=== PATIENT | female | born 1995 | race Hispanic/Latino ===

== ENCOUNTER 2018-05-22 12:07 | Observation (INO) | payer OTHER ==
[2018-05-22] MEDS ORDERED: Promethazine HCl 25 MG/ML VIAL IM PRN (14:27)
[2018-05-22] MEDS ORDERED: Ondansetron PF 4 MG/2 ML Vial IVP PRN (14:27)
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
[2018-05-22 15:03] LABS: Mean Corpuscular HGB CONC 34.5 g/dL (32.0-36.0); Mean Corpuscular Hemoglobin 32.5 pg (27.0-31.0); Mean Corpuscular Volume 94.4 fL (78.0-98.0); Mean Platelet Volume 7.2 fL (7.4-10.4); Platelet Count 236 thou/uL (130-400); RBC Distribution Width 11.2 % (11.5-14.5); White Blood Cell (WBC) Count 13.5 thou/uL (4.8-10.8)
[2018-05-22] MEDS: Dextrose 5%-Lactated Ringers 1,000 ML IV SCH ×3 (15:22→23:30)
[2018-05-22 15:23] LABS: ALT (SGPT) 30 U/L (8-55); AST (SGOT) 23 U/L (5-34); Albumin 3.9 g/dL (3.5-5.0); Alkaline Phosphatase 118 U/L (40-150); Anion Gap 16 mmol/L (10-20); BUN (Urea Nitrogen) 8 mg/dL (7.0-18.7); Bilirubin, Total 0.4 mg/dL (0.2-1.2); Calc. Creatinine Clearance 195 mL/min (70-130); Calcium 9.7 mg/dL (7.8-10.44); Carbon Dioxide 17 mmol/L (22-29); Chloride 107 mmol/L (98-107); Estimated GFR-MDRD Greater than 90; Globulin 3.5 g/dL (2.4-3.5); Glucose 72 mg/dL (70-105); Potassium 3.7 mmol/L (3.5-5.1); Protein, Total 7.4 g/dL (6.0-8.3); Sodium 136 mmol/L (136-145)
[2018-05-22] MEDS ORDERED: Betamet Acet/Betamet Na Ph 30 MG/5 ML VIAL ONE (17:13)
--- NOTE | 2018-05-22 17:37 | PDOC.EVN ---
Event Note - Event Note Event Note: UCs noted q 4-6 mins, not significant to patient at present. SVE closed, long, PP high. Labs: WBC= 13, H/H= 13/37, plts= 236. Chemistries are normal. B positive with negative ABS. Plan: Start steroids for FLM and observe. KB ordered.
[2018-05-22] MEDS: Betamet Acet/Betamet Na Ph 30 MG/5 ML VIAL IM SCH (18:37)
[2018-05-22 19:04] VITALS: BMI 33.8
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
[2018-05-23] MEDS: Dextrose 5%-Lactated Ringers 1,000 ML IV SCH ×2 (01:00→07:32)
[2018-05-23] MEDS: Acetaminophen 325 MG TAB PO PRN ×2 (01:15→07:36)
--- NOTE | 2018-05-23 04:18 | PDOC.EVN ---
Event Note - Event Note Event Note: Sleeping. FHTs remain stable. Fluid bolus given earlier this AM for UCs, few UCs noted now. Plan; Cont. in house OBS to complete 24 hours and give second dose of steroids later this AM.
[2018-05-23 08:10] VITALS: BP 113/64; TEMP 97.5
[2018-05-23] MEDS: Betamet Acet/Betamet Na Ph 30 MG/5 ML VIAL IM SCH (12:39)
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
== END 2018-05-23 12:50 | disposition home health service (06) ==
LOC: ERS 12:07 → L&D/OP 13:40 → L&D 14:48 → INTOOBSV 14:48
PROVIDERS: ADMIT Obstetrics & Gynecology; ATTEND Obstetrics & Gynecology
DX: O99.89 Other specified diseases and conditions complicating pregnancy, childbirth and the puerperium (principal); R10.30 Lower abdominal pain, unspecified; Z3A.34 34 weeks gestation of pregnancy; Z79.899 Other long term (current) drug therapy; V49.50XA Passenger injured in collision with unspecified motor vehicles in traffic accident, initial encounter
CPT/HCPCS: 36415; 76815; 80053; 85027; 85460; 86850; 86900; 86901; 96360; 96361; 96372; 99285; G0378; J0702

== ENCOUNTER 2018-06-25 02:57 | Inpatient (IN) | payer BC, OTHER ==
[2018-06-25 03:50] VITALS: BMI 34.4
[2018-06-25] MEDS ORDERED: Morphine 10 MG/ML VIAL IM SCH (05:30)
[2018-06-25] MEDS ORDERED: Promethazine HCl 25 MG/ML VIAL IM PRN ×2 (08:02→16:43)
[2018-06-25] MEDS ORDERED: Ibuprofen 800 MG TAB PO PRN (08:02)
[2018-06-25] MEDS ORDERED: Methylergonovine 0.2 MG/ML VIAL IM PRN ×2 (08:02→16:43)
[2018-06-25] MEDS ORDERED: NS / Oxytocin 40 units/1000ml 1,000 ML IV PRN (08:02)
[2018-06-25] MEDS ORDERED: Ondansetron PF 4 MG/2 ML Vial IVP PRN ×2 (08:02→16:43)
[2018-06-25] MEDS ORDERED: Diphenoxylate HCl/Atropine Tablet PO PRN (08:02)
[2018-06-25] MEDS ORDERED: HYDROcodone/Acetaminophen 5/325 mg Tablet PO PRN ×3 (08:02→16:43)
[2018-06-25] MEDS ORDERED: Lidocaine 1% (PF) 30 ML VIAL SC PRN (08:02)
[2018-06-25] MEDS ORDERED: Acetaminophen 500 MG TAB PO PRN (08:02)
[2018-06-25] MEDS ORDERED: Misoprostol 200 MCG TAB PR PRN (08:02)
[2018-06-25] MEDS ORDERED: Carboprost 250 MCG/ML AMP IM PRN (08:02)
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
[2018-06-25] MEDS ORDERED: NS w/ Oxytocin 10 units 500 ML IV SCH (08:15)
[2018-06-25] MEDS: Lactated Ringer's 1,000 ML IV SCH ×2 (09:00→13:53)
[2018-06-25 09:12] LABS: Hemoglobin 12.6 g/dL (12.0-16.0); Mean Corpuscular HGB CONC 33.8 g/dL (32.0-36.0); Mean Corpuscular Hemoglobin 31.9 pg (27.0-31.0); Mean Corpuscular Volume 94.3 fL (78.0-98.0); Mean Platelet Volume 7.8 fL (7.4-10.4); Platelet Count 212 thou/uL (130-400); RBC Distribution Width 12.2 % (11.5-14.5); Red Blood Cell (RBC) Count 3.97 mill/uL (4.20-5.40); White Blood Cell (WBC) Count 19.9 thou/uL (4.8-10.8)
[2018-06-25 09:58] LABS: Syphilis Antibody Nonreactive (Nonreactive); Syphilis Antibody Index 0.03 S/CO (<1.00 Non-Reactive)
[2018-06-25 09:59] LABS: HBSAg Index 0.23 S/CO (0-0.99); HIV (1/2) Antibody/Antigen Non-Reactive (NonReactive); HIV 1/2 INDEX 0.09 S/CO (<1.00); Hep B Surf Ag Non-Reactive S/CO (NonReactive)
[2018-06-25] MEDS: Butorphanol Tartrate 1 MG/ML VIAL SLOW IVP PRN ×2 (12:49→13:51)
--- NOTE | 2018-06-25 13:10 | PDOC.LDPN ---
Labor & Delivery Progress Note - Subjective Subjective: painful contractions, loss of fluid (SROM) - Objective Vital signs reviewed and normal: yes General: NAD Uterine fundus: non tender Dilation: 5 Effacement: 90% Station: -1 FHT: category 1 (120s, mod levar, +accels, no decels ) [place] contractions every: q2-3 min AROM: clear fluid (AROM redundant membranes) - Assessment (1) 39 weeks gestation of Code(s): Z3A.39 - 39 WEEKS GESTATION OF Current Visit: Yes Status : Acute (2) Active labor at term Code(s): QLT7694 - Current Visit: Yes Status: Acute Plan: continue plan of care, pitocin for augmentation
[2018-06-25] MEDS ORDERED: Fentanyl 4 mcg/Bup 0.1% Cadd 0 ML ONE (14:14)
[2018-06-25] MEDS ORDERED: Fentanyl 4 mcg/Bup 0.1% Cadd 100 ML ONE (14:31)
[2018-06-25] MEDS ORDERED: Misoprostol 200 MCG TAB VAG PRN (16:43)
[2018-06-25] MEDS ORDERED: diphenhydrAMINE 25 MG CAP PO PRN (16:43)
[2018-06-25] MEDS ORDERED: Measles/Mumps/Rubella 10 MCG/0.5 ML VIAL SC ONE (16:43)
[2018-06-25] MEDS ORDERED: Lanolin Ointment 7 GM TUBE TOP PRN (16:43)
[2018-06-25] MEDS ORDERED: Benzocaine/Menthol 20-0.5% 60 ML CAN TOP PRN (16:43)
[2018-06-25] MEDS ORDERED: Milk Of Magnesia 30 ML UDCUP PO PRN (16:43)
[2018-06-25] MEDS ORDERED: Varicella virus, LIVE 0.5 ML VIAL SC ONE (16:43)
[2018-06-25] MEDS ORDERED: Adacel (T-DAP) 0.5 ML VIAL IM ONE (16:43)
[2018-06-25] MEDS ORDERED: Bisacodyl 10 MG SUPP PR PRN (16:43)
[2018-06-25] MEDS ORDERED: Preparation H Ointment 28 GM TUBE PR PRN (16:43)
[2018-06-25] MEDS ORDERED: NS / Oxytocin 40 units/1000ml 1,000 ML IV SCH ×2 (16:45→18:15)
--- NOTE | 2018-06-25 16:49 | PDOC.OPDEL ---
OB Operative/Delivery Note Delivery Dr/Surgeon: Lissa Preston MD Pre-Delivery Diagnosis: active labor Procedure/Post Delivery Dx: spontaneous vaginal delivery Weeks gestation: 39 Anesthesia: none - Findings A Sex: male ("George") Weight: 7 lb - 1 min: 8 - 5 min: 9 - Additional Findings/Plan Placenta delivered: spontaneous Repaired Obstetrical Laceration: 2nd degree Estimated blood loss: QBL 167ml Compilations/Other Findings: delivered without difficulty. Mom and baby doing well. Post delivery plan: routine recovery
[2018-06-25] MEDS: Ibuprofen 800 MG TAB PO SCH (21:20)
[2018-06-25] MEDS: Docusate Calcium (SURFAK) 240 MG CAP PO SCH (21:21)
[2018-06-25] MEDS: Ferrous Sulfate 325 MG TAB PO SCH (23:20)
[2018-06-26] MEDS: Ibuprofen 800 MG TAB PO SCH ×3 (06:25→21:16)
[2018-06-26] MEDS: Docusate Calcium (SURFAK) 240 MG CAP PO SCH ×2 (08:44→21:16)
[2018-06-26] MEDS: Ferrous Sulfate 325 MG TAB PO SCH ×2 (08:45→17:32)
[2018-06-26] MEDS: Prenatal Vitamin 1 TAB PO SCH (08:45)
--- NOTE | 2018-06-26 12:40 | PDOC.PP ---
Post Progress Note Post Day #: 1 Subjective: No concerns. Doing well. breast feeding. Minimal lochia and pain. PO intake tolerated: yes Flatus: yes Ambulation: yes Vital Signs (12 hours) Temp Pulse Resp BP Pulse Ox 06/26/18 11:49 97.8 F 86 20 114/74 06/26/18 08:21 98.1 F 89 20 123/79 98 06/26/18 08:00 98 06/26/18 04:34 97.6 F 86 16 106/62 Weight Weight 188 lb - Physical Examination General: NAD Cardiovascular: RRR Respiratory: non-labored breathing Abdominal: no distention, appropriately TTP Fundus firm & at: below umbilicus Extremities: negative homans (B) Neurological: no gross focal deficits Psychiatric: A&Ox3, normal affect Result Diagrams: 06/25/18 08:40 Additional Labs: Post Labs Blood Type O POSITIVE 06/25/18 08:40 Hep Bs Antigen Non-Reactive S/CO (NonReactive) 06/25/18 08:40 (1) 39 weeks gestation of Code(s): Z3A.39 - 39 WEEKS GESTATION OF Status: Resolved (2) Active labor at term Code(s): UKZ5335 - Status: Resolved (3) Vaginal delivery Code(s): O80 - ENCOUNTER FOR FULL-TERM UNCOMPLICATED DELIVERY Status: Acute - Assessment/Plan PPD1 VSSAF Continue PP care Plan for d/c home tomorrow
[2018-06-27] MEDS: Ibuprofen 800 MG TAB PO SCH ×2 (06:49→08:53)
[2018-06-27] MEDS: Ferrous Sulfate 325 MG TAB PO SCH (07:28)
--- NOTE | 2018-06-27 07:30 | PDOC.PP ---
Post Progress Note Post Day #: 2 Subjective: Patient denies any complaints. She is breast feeding without difficulty. She reports ambulating, tolerating PO, and voiding without difficulty. She states that her abdominal pain is minimal. She reports minimal vaginal bleeding. She denies any N/V. She endorses flatus and BM. PO intake tolerated: yes Flatus: yes Ambulation: yes Vital Signs (12 hours) Temp Pulse Resp BP Pulse Ox 06/26/18 20:00 98.9 F 85 20 133/80 97 Weight Weight 85.275 kg - Physical Examination General: NAD Cardiovascular: no m/r/g, RRR Respiratory: clear to auscultation bilaterally, non-labored breathing Abdominal: + bowel sounds, lochia (minimal), no distention, appropriately TTP Fundus firm & at: 2 cm below umbilicus Neurological: no gross focal deficits Psychiatric: A&Ox3, normal affect Result Diagrams: 06/25/18 08:40 Additional Labs: Post Labs Blood Type O POSITIVE 06/25/18 08:40 Hep Bs Antigen Non-Reactive S/CO (NonReactive) 06/25/18 08:40 (1) Vaginal delivery Code(s): O80 - ENCOUNTER FOR FULL-TERM UNCOMPLICATED DELIVERY Status: Acute Comment: 23 y/o ->1 delivered via -Routine post- care -Pain control with ibuprofen and norco, will d/c norco -Encourage breast feeding -Encourage ambulation -d/c home today - Assessment/Plan d/c home today with
[2018-06-27] MEDS: Prenatal Vitamin 1 TAB PO SCH (08:53)
[2018-06-27] MEDS: Docusate Calcium (SURFAK) 240 MG CAP PO SCH (08:53)
[2018-06-27 09:14] VITALS: BP 114/69; TEMP 98
== END 2018-06-27 13:15 | disposition home or self-care (01) | DRG 807 ==
LOC: L&D/OP 02:57 → L&D 10:59 → 3SW 18:54
PROVIDERS: ADMIT Obstetrics & Gynecology; ATTEND Obstetrics & Gynecology
PROC: 10E0XZZ Delivery of Products of Conception, External Approach (ICD-10-PCS; principal; 2018-06-25)
PROC: 0KQM0ZZ Repair Perineum Muscle, Open Approach (ICD-10-PCS; 2018-06-25)
DX: O76 Abnormality in fetal heart rate and rhythm complicating labor and delivery (principal); Z37.0 Single live birth; Z3A.39 39 weeks gestation of pregnancy; O70.1 Second degree perineal laceration during delivery
CPT/HCPCS: 36415; 85027; 86780; 86850; 86900; 86901; 87340; 87389; 99285; J0595; J2001; J2270